=== PATIENT | male | born 1965 | race Caucasian/White ===

== ENCOUNTER 2017-01-11 04:45 | Emergency (ER) | payer OTHER ==
[~2017-01-11] VITALS: Ht 185.4 cm; Wt 107.7 kg
[2017-01-11] MEDS ORDERED: TESSALON PERLE100 MG PO (05:44)
[2017-01-11] MEDS ORDERED: VENTOLIN HFA18 GM IH (05:44)
[2017-01-11] MEDS ORDERED: MEDROL DOSEPAK4 MG PO (05:44)
[2017-01-11] MEDS ORDERED: ROBITUSSIN AC,T10 ML PO (05:44)
[2017-01-11 06:14] VITALS: BP 139/85
== END 2017-01-11 06:15 | disposition home or self-care (01) ==
LOC: EME 04:45
DX: J06.9 Acute upper respiratory infection, unspecified (principal); J98.01 Acute bronchospasm; K21.9 Gastro-esophageal reflux disease without esophagitis
CPT/HCPCS: 71020; 93005; 94640; 99281; 99284